=== PATIENT | female | born 1960 | race Caucasian/White ===

== ENCOUNTER → 2016-12-28 | Outpatient (CLI) | payer BC ==
[~2016-12-28] MED LIST: MAXZIDE 75/50 T1 TAB; PRILOSEC
--- NOTE | ~2016-12-28 | MY29 ---
[facility] A Service of [facility] RADIOLOGY TEXT RESULTS PATIENT: JUANY VELASQUEZ LOCATION: [facility] : 60 UNIT #: [id number] AGE: [address]: Bolivar Schrader MD SEX: F ORDER DR: [id number] [facility] [address] [place], [place] [address] [id number] O MR#: [id number] Acc #: [id number] NAME: JUANY VELASQUEZ : 1960 SEX: F STUDY DATE/TIME: 12/28/2016 16:44 UNIT: [facility] ROOM: STUDY DESCRIPTION: MY KINSEY SCREENING W/ CAD BILAT Attending Physician: Bolivar Schrader M.D. Referring Physician: Bolivar Schrader M.D. Ordering Physician: Bolivar Schrader M.D. Primary Care Physician: Meagan Limon M.D. MEDICAL IMAGING REPORT This report is preliminary unless electronic signature is present EXAM Bilateral digital screening mammogram with CAD, 12/28/2016 at 16:44. HISTORY Family history of breast cancer in aunt at the age of 68. No personal history of breast cancer. No current complaints. COMPARISON Bilateral screening mammogram 09/12/2015, 06/08/2014, 06/01/2013. FINDINGS CC and MLO views were obtained of each breast, utilizing digital technique, and reviewed with an FDA-approved CAD device. The breast parenchyma is predominately fatty replaced. No suspicious nodule, architectural distortion, cluster of microcalcifications, skin thickening or nipple retraction is seen. IMPRESSION Negative screening mammogram. Routine screening mammogram is recommended in 1 year. Patients over the age of 40 are entered into a reminder system with target due date for the next mammogram. A result letter will also be sent to the patient. BIRADS: 1 Negative Dictated by... Anita Becker M.D. THIS IS AN ELECTRONICALLY VERIFIED REPORT [facility] A Service of [facility] RADIOLOGY TEXT RESULTS PATIENT: JUANY VELASQUEZ LOCATION: [facility] : 60 UNIT #: [id number] AGE: [address]: Bolivar Schrader MD SEX: F ORDER DR: Anita Becker M.D. at 12/29/2016 5:03 PM Joseph TD: 12/29/2016 15:41 JOB #: [id number] MEDICAL IMAGING REPORT Page 1 of 1 COPY
== END | disposition home or self-care (01) ==
LOC: CWCC 16:30
DX: Z12.31 Encounter for screening mammogram for malignant neoplasm of breast (principal); Z80.3 Family history of malignant neoplasm of breast
CPT/HCPCS: G0202